=== PATIENT | female | born 1990 | race Caucasian/White ===

== ENCOUNTER 2016-10-31 22:27 | Emergency (ER) | payer BC ==
[~2016-10-31] VITALS: Ht 165.1 cm; Wt 59.0 kg
[2016-10-31] MEDS ORDERED: KETOROLAC 30 MG/ML (TORADOL) 1 ML VIAL IV ONE (23:10)
[2016-10-31] MEDS ORDERED: SODIUM CHLORIDE FLUSH 3 ML SYR IV PRN (23:10)
[2016-10-31] MEDS ORDERED: SODIUM CHLORIDE FLUSH 10 ML SYR IV PRN (23:10)
[2016-10-31 23:43] LABS: BASOPHILS % (AUTO) 0 % (0-2); EOSINOPHILS # (AUTO) 1.3 10^3uL; EOSINOPHILS % (AUTO) 11 % (0-4); MEAN CORPUSCULAR HEMOGLOBIN 28.8 PG (26.0-34.0); MEAN CORPUSCULAR HGB CONC 34.7 g/dL (31.0-37.0); MEAN CORPUSCULAR VOLUME 83 FL (80-100); MEAN PLATELET VOLUME 9.4 FL (6.0-9.5); MONOCYTES % (AUTO) 8 % (3-11); NEUTROPHILS # (AUTO) 6.1 X10^3; NEUTROPHILS % (AUTO) 54 % (51-67); PLATELET COUNT 344 10^3uL (150-450); WHITE BLOOD COUNT 11.35 10^3uL (4.0-11.0)
[2016-10-31 23:50] LABS: BILIRUBIN,URINE Negative (Negative); CLARITY,URINE Cloudy; COLOR,URINE Yellow; GLUCOSE, URINE (UA) Negative (Negative); LEUKOCYTE ESTERASE ,URINE 1+ (Negative); UROBILINOGEN,URINE 0.2 mg/dL (0.2-1.0)
[2016-10-31 23:52] LABS: ALBUMIN 3.9 g/dL (3.4-5.0); ANION GAP 13.5 MEQ/L (3-15); TOTAL PROTEIN 7.5 g/dL (6.4-8.5)
[2016-10-31 23:58] LABS: HCG,QUALITATIVE URINE Negative (Negative); URINE CENTRIFUGED VOLUME 12 mL
--- NOTE | 2016-11-01 00:12 | NUR ---
Pt states that her pain is a little better at this time
[2016-11-01] MEDS ORDERED: cefTRIAXone SODIUM 1,000 MG in SODIUM CHLORIDE 50 ML IV ONE (00:20)
[2016-11-01] MEDS ORDERED: ED- TRAMADOL 50 MG (ULTRAM) 6 TABLETS/BTL PO ONE (00:55)
[2016-11-01 01:28] VITALS: BP 114/69
== END 2016-11-01 01:32 | disposition home or self-care (01) ==
LOC: ED 22:30
DX: N12 Tubulo-interstitial nephritis, not specified as acute or chronic (principal)
CPT/HCPCS: 36415; 74020; 80053; 81003; 81015; 81025; 82150; 83690; 85025; 87088; 96361; 96365; 96375; 99284; J0696; J1885; J7030; 87077; 99283